=== PATIENT | female | born 1945 | race Caucasian/White ===

== ENCOUNTER 2019-05-21 09:43 | Inpatient (IN) | payer MEDICARE, BC ==
[~2019-05-21] VITALS: Ht 154.9 cm; Wt 84.4 kg
[~2019-05-21 09:43] MED LIST: ASPI-1169 PO; BUME1TAB34 PO; CARV25TA2 PO; LISI-603 PO; SPIR25TA PO
--- NOTE | 2019-05-21 10:00 | NUR ---
SOB, BLE EDEMA WORST X 1 WEEK, DENIES CHEST PAIN. AA/OX4, BREATHING EVEN AND UNLABORED, NO SOB NOTED, CHANGED INTO GOWN, NO DISTRESS NOTED, ATTACHED TO THE HAND TACKER. WILL MONITOR.
[2019-05-21 10:19] LABS: BASOPHILS % (AUTO) 0.4 % (0.0-2.0); EOSINOPHILS % (AUTO) 0.6 % (0.0-6.0); HEMATOCRIT 43 % (33-45); HEMOGLOBIN 14.4 g/dL (11.5-14.8); LYMPHOCYTES # (AUTO) 0.9 /CMM (0.8-4.8); LYMPHOCYTES % (AUTO) 17.4 % (20.0-44.0); MEAN CORPUSCULAR HGB CONC 33 g/dl (31.0-36.0); MEAN CORPUSCULAR VOLUME 100 fL (82-100); MONOCYTES # (AUTO) 0.5 /CMM (0.1-1.30); MONOCYTES % (AUTO) 8.8 % (2.0-12.0); NEUTROPHILS # (AUTO) 3.9 /CMM (1.8-8.9); NEUTROPHILS % (AUTO) 72.8 % (43.0-81.0); PLATELET COUNT (AUTO) 120 /CMM (150-450); RED BLOOD CELL COUNT(AUTO) 4.33 MIL/uL (4.0-5.2); WHITE BLOOD COUNT (AUTO) 5.3 K/uL (4.3-11.0)
[2019-05-21 10:26] LABS: CALCIUM, SERUM 8.7 mg/dL (8.5-10.1); CARBON DIOXIDE 28 mmol/L (21-32); CHLORIDE 108 mmol/L (98-107); CREATININE 1.5 mg/dL (0.6-1.3); GLUCOSE 115 mg/dL (74-106); POTASSIUM 4.3 mmol/L (3.5-5.1); SODIUM SERUM 144 mmol/L (136-145); UREA NITROGEN, BLOOD 38 mg/dL (7-18)
[2019-05-21 10:41] LABS: ALANINE AMINOTRANSFERASE 33 U/L (12-78); ALBUMIN 3.4 g/dL (3.4-5.0); ALKALINE PHOSPHATASE 81 U/L (46-116); ASPARTATE AMINOTRANSFERASE 25 U/L (15-37); B-TYPE NATRIURETIC PEPTIDE 9108 PG/ML (0-125); BILIRUBIN,DIRECT 0.3 mg/dL (0.0-0.2); BILIRUBIN,TOTAL 0.8 mg/dL (0.2-1.0); TOTAL PROTEIN, SERUM 6.3 g/dL (6.4-8.2)
--- NOTE | 2019-05-21 11:51 | NUR ---
CALLED NURSING SUP FOR BED
--- NOTE | 2019-05-21 11:58 | NUR ---
CALLED [facility], PAGED LOGGING SUPERVISOR OSIEL
[2019-05-21 12:00] VITALS: BP 116/79
--- NOTE | 2019-05-21 12:24 | NUR ---
325-1 TELE CHF, OSIEL DNP
--- NOTE | 2019-05-21 12:24 | NUR ---
Sailaja moss in [facility] - 05/21/19 at 1224 by LOS 235-1 TELE, CHF, OSIEL DNP
[2019-05-21] MEDS ORDERED: FUROSEMIDE 20 MG/2 ML VIAL IV ONE (12:30)
[2019-05-21] MEDS ORDERED: FUROSEMIDE 20 MG/2 ML VIAL ONE (12:34)
[2019-05-21 13:00] VITALS: BP 116/79
--- NOTE | 2019-05-21 13:00 | NUR ---
HOME HEALTH NURSE LICENSED PRACTICAL NOTES PT ARRIVED ONTO THE UNIT VIA GURNEY. PT AMBULATED FROM THE GURNEY TO THE HOSPITAL BED. PER PATIENT INCREASE OF BLE EDEMA AND WORSENING SOB X1 WEEK. PT HAS LEFT HAND #20 INTACT AND PATENT. NO COMPLAINTS OF PAIN, SOB OR DISTRESS AT THIS TIME. PT HAS BLE DRYNESS. PT TELE MONITORED NSR WITH OCC PVS. ALL PATIENT BELONGINGS ACCOUNTED FOR AND DOCUMENTED. PT ORIENTED TO THE USE OF THE CALL LIGHT. SAFETY PRECAUTIONS IN PLACE, BED IN LOWEST LOCKED POSITION, X2 SIDE RAILS UP AND CALL LIGHT WITHIN REACH. WILL CONTINUE TO MONITOR.
--- NOTE | 2019-05-21 13:00 | NUR ---
Transferred patient to room 325-1 via acls protocol. Patient in stable condition. No distress noted. Endorsed to Sheree WATSON.
[2019-05-21] MEDS ORDERED: HYDROCODONE/APAP 5/325MG 1 EACH TABLET PO PRN (14:00)
[2019-05-21] MEDS ORDERED: ONDANSETRON HCL/PF 4 MG/2 ML VIAL IVP PRN (14:00)
[2019-05-21] MEDS ORDERED: ACETAMINOPHEN 325 MG TABLET PO PRN (14:00)
[2019-05-21] MEDS ORDERED: MAG HYDROX/AL HYDROX/SIMETH 30 ML UDC PO PRN (14:00)
[2019-05-21] MEDS ORDERED: MAGNESIUM HYDROXIDE 30 ML UDC PO PRN (14:00)
[2019-05-21] MEDS ORDERED: ZOLPIDEM TARTRATE 5 MG TABLET PO PRN (14:00)
[2019-05-21] MEDS ORDERED: Z GUARD REMEDY 2 OZ OINT TP PRN (14:00)
[2019-05-21 16:00] VITALS: BP 83/51
[2019-05-21] MEDS: ASPIRIN 81 MG TAB.CHEW PO SCH (17:19)
--- NOTE | 2019-05-21 18:40 | NUR ---
RN NOTES STAT EKG ORDERED BY DR CARTAGENA. PT HAD X2 EPISODES OF V RUNS PER PARTS CONSULTANT. EKG SHOWED NSR WITH BBB. DR CARTAGENA INFORMED OF RESULTS. Addendum: 05/21/19 at 1844 by NERY SEGUNDO RN PT REMAINS ASYMPTOMATIC.
--- NOTE | 2019-05-21 18:42 | NUR ---
RN CLOSING NOTES PT AWAKE AND RESTING IN BED. NO COMPLAINTS OF PAIN, SOB OR DISTRESS DURING SHIFT. PT HAS LEFT HAND #20 IV INTACT AND PATENT. PT TELE MONITORED NSR WITH BBB AND OCCASIONAL PVCS. SAFETY PRECAUTIONS IN PLACE, BED IN LOWEST LOCKED POSITION, X2 SIDE RAILS UP AND CALL LIGHT WITHIN REACH. WILL ENDORSE TO PORTABLE FEED MILL OPERATOR NURSE FOR CONTINUITY OF CARE.
--- NOTE | 2019-05-21 19:40 | NUR ---
RN NOTES RECEIVED PT. AWAKE ON BED, A/OX4, AMBULATORY, SR WITH BBB AND PAC HR-80, DENIES PAIN, NO SOB, BILATERAL LOWER EXTREMITIES EDEMA NOTED +2, DR. OTT ASKED ME IF PT BP IS LOW, BP ON THE 80'S -TRIED IT MANUALLY - PT IS ASYMPTOMATIC, PER PATIENT HER BLOOD PRESSURE IS ALWAYS ON THE LOW SIDE, DENIES PAIN, NO SOB, CALL LIGHT WITHIN REACH, [id number], CONTINUE TO MONITOR
--- NOTE | 2019-05-21 19:50 | NUR ---
RN NOTES INFORMED JACQUI MAN DNP REGARDING PT. BLOOD PRESSURE. JACQUI MONTGOMERY IS AWARE OF PT. 2D ECHO RESULT. AND MADE NO ORDER
[2019-05-21 20:00] VITALS: BP_SYST 80; BP_SYST 81; BP_DIAS 57; BP_DIAS 60
[2019-05-21] MEDS: ENOXAPARIN SODIUM 30 MG/0.3 ML DISP.SYRIN SQ SCH (21:24)
[2019-05-22] VITALS: BP 113/62
[2019-05-22 04:00] VITALS: BP_SYST 113; BP_SYST 78; BP_SYST 81; BP_SYST 85; BP_DIAS 53; BP_DIAS 57; BP_DIAS 62; BP_DIAS 64
[2019-05-22 06:33] LABS: BASOPHILS % (AUTO) 0.2 % (0.0-2.0); EOSINOPHILS % (AUTO) 0.9 % (0.0-6.0); HEMATOCRIT 44 % (33-45); HEMOGLOBIN 14.1 g/dL (11.5-14.8); LYMPHOCYTES # (AUTO) 0.8 /CMM (0.8-4.8); LYMPHOCYTES % (AUTO) 18.8 % (20.0-44.0); MEAN CORPUSCULAR HGB CONC 32 g/dl (31.0-36.0); MEAN CORPUSCULAR VOLUME 101 fL (82-100); MONOCYTES # (AUTO) 0.4 /CMM (0.1-1.30); MONOCYTES % (AUTO) 10.3 % (2.0-12.0); NEUTROPHILS # (AUTO) 2.8 /CMM (1.8-8.9); NEUTROPHILS % (AUTO) 69.8 % (43.0-81.0); PLATELET COUNT (AUTO) 113 /CMM (150-450); RED BLOOD CELL COUNT(AUTO) 4.33 MIL/uL (4.0-5.2)
--- NOTE | 2019-05-22 06:47 | NUR ---
RN NOTES AWAKE, DENIES PAIN, NO SOB, MORNING CARE RENDERED, CALL LIGHT WITHIN REACH, [id number], CONTINUE TO MONITOR
[2019-05-22 07:09] LABS: ALANINE AMINOTRANSFERASE 28 U/L (12-78); ALBUMIN 3.2 g/dL (3.4-5.0); ALKALINE PHOSPHATASE 67 U/L (46-116); ASPARTATE AMINOTRANSFERASE 22 U/L (15-37); BILIRUBIN,TOTAL 0.7 mg/dL (0.2-1.0); CALCIUM, SERUM 8.8 mg/dL (8.5-10.1); CARBON DIOXIDE 32 mmol/L (21-32); CHLORIDE 108 mmol/L (98-107); CREATININE 1.6 mg/dL (0.6-1.3); GLUCOSE 99 mg/dL (74-106); MAGNESIUM 2.1 mg/dL (1.8-2.4); PHOSPHORUS 3.7 mg/dL (2.5-4.9); POTASSIUM 4.6 mmol/L (3.5-5.1); SODIUM SERUM 145 mmol/L (136-145); TOTAL PROTEIN, SERUM 6.1 g/dL (6.4-8.2); UREA NITROGEN, BLOOD 39 mg/dL (7-18)
[2019-05-22 07:10] LABS: CHOLESTEROL 143 mg/dL (<200); HDL CHOLESTEROL 44 mg/dL (40-60); LDL 93 mg/dL (0-99); THYROID STIMULATING HORMONE 1.189 uIU/mL (0.358-3.74); TRIGLYCERIDES 64 mg/dL (30-150)
--- NOTE | 2019-05-22 07:27 | NUR ---
CARDING UTILITY TENDER OPENING NOTES RECEIVED PATIENT AWAKE IN BED RESTING COMFORTABLY. A/O X 4. NO SOB NOTED. ON IV ACCESS ON LEFT HAND #20, CURRENTLY ON S/L. PATENT AND INTACT. ON TELE MONITORING WITH CURRENT READINGS OF SR WITH BBB AND PAC, HR OF 70'S. SAFETY MEASURES IN PLACE, BED IN LOW LOCKED POSITION, SIDE RAILS UP X2. CALL LIGHT WITHIN EASY REACH. WILL CONTINUE TO MONITOR.
[2019-05-22 08:03] VITALS: BP 76/40
[2019-05-22] MEDS: ASPIRIN 81 MG TAB.CHEW PO SCH ×2 (08:12→16:27)
[2019-05-22] MEDS ORDERED: FUROSEMIDE 40 MG/4 ML VIAL IV SCH (09:00)
[2019-05-22] MEDS ORDERED: SPIRONOLACTONE 25 MG TABLET PO SCH (09:00)
[2019-05-22 12:00] VITALS: BP 84/59
[2019-05-22 16:00] VITALS: BP 88/62
[2019-05-22] MEDS ORDERED: ASPI-1152 PO (17:46)
--- NOTE | 2019-05-22 18:59 | NUR ---
MS RN CLOSING NOTES PATIENT IN BED RESTING COMFORTABLY. A/O X 4. ABLE TO MAKE NEEDS KNOWN. IV ACCESS ON LEFT HAND #20, SL. PATENT AND INTACT. ALL NURSING NEEDS AND CARE ATTENDED WELL. SAFETY MEASURES KEPT IN PLACE. BED IN LOW LOCKED POSITION WITH SIDE RAILS UP X2. BEDSIDE TABLE AND CALL LIGHT WITHIN REACH. WILL ENDORSE TO BURGLAR ALARM INSPECTOR NURSE FOR RUBÉN.
--- NOTE | 2019-05-22 19:30 | NUR ---
RN NOTES RECEIVED PT. AWAKE , WALKING INSIDE HER ROOM, DENIES PAIN, "PT. STATED THAT SHE FEELS BETTER NOW", NO SOB CALL LIGHT WITHIN REACH, [id number], CONTINUE TO MONITOR
[2019-05-22 20:00] VITALS: BP_SYST 81; BP_SYST 85; BP_DIAS 52
[2019-05-22] MEDS: ENOXAPARIN SODIUM 30 MG/0.3 ML DISP.SYRIN SQ SCH (21:09)
[2019-05-23 06:21] LABS: BASOPHILS % (AUTO) 0.3 % (0.0-2.0); EOSINOPHILS % (AUTO) 0.9 % (0.0-6.0); HEMATOCRIT 44 % (33-45); HEMOGLOBIN 14.6 g/dL (11.5-14.8); LYMPHOCYTES # (AUTO) 0.8 /CMM (0.8-4.8); LYMPHOCYTES % (AUTO) 15.2 % (20.0-44.0); MEAN CORPUSCULAR HGB CONC 33 g/dl (31.0-36.0); MEAN CORPUSCULAR VOLUME 100 fL (82-100); MONOCYTES # (AUTO) 0.4 /CMM (0.1-1.30); MONOCYTES % (AUTO) 8.2 % (2.0-12.0); NEUTROPHILS # (AUTO) 3.9 /CMM (1.8-8.9); NEUTROPHILS % (AUTO) 75.4 % (43.0-81.0); PLATELET COUNT (AUTO) 111 /CMM (150-450); RED BLOOD CELL COUNT(AUTO) 4.41 MIL/uL (4.0-5.2); WHITE BLOOD COUNT (AUTO) 5.2 K/uL (4.3-11.0)
[2019-05-23 06:24] LABS: ALANINE AMINOTRANSFERASE 31 U/L (12-78); ALBUMIN 3.3 g/dL (3.4-5.0); ALKALINE PHOSPHATASE 72 U/L (46-116); ASPARTATE AMINOTRANSFERASE 18 U/L (15-37); BILIRUBIN,TOTAL 0.6 mg/dL (0.2-1.0); CALCIUM, SERUM 8.6 mg/dL (8.5-10.1); CREATININE 1.6 mg/dL (0.6-1.3); GLUCOSE 103 mg/dL (74-106); MAGNESIUM 2.1 mg/dL (1.8-2.4); PHOSPHORUS 3.4 mg/dL (2.5-4.9); TOTAL PROTEIN, SERUM 6.3 g/dL (6.4-8.2); UREA NITROGEN, BLOOD 40 mg/dL (7-18)
--- NOTE | 2019-05-23 06:30 | NUR ---
RN NOTES AWAKE, DENIES PAIN, NO SOB, MORNING CARE RENDERED, CALL LIGHT WITHIN REACH, [id number], PT. NEEDS ATTENDED
[2019-05-23 06:38] LABS: CARBON DIOXIDE 29 mmol/L (21-32); CHLORIDE 107 mmol/L (98-107); POTASSIUM 4.4 mmol/L (3.5-5.1); SODIUM SERUM 144 mmol/L (136-145)
--- NOTE | 2019-05-23 07:10 | NUR ---
MS RN NOTES PATIENT IN BED ALERT ORIENTED X 3. NO ACUTE DISTRESS NOTED. BREATHING UNLABORED. NO SOB NOTED. IV ACCESS PATENT AND INTACT, NO REDNESS OR SWELLING NOTED. SAFETY MEASURES IN PLACE. CALL LIGHT WITHIN REACH. WILL CONTINUE TO MONITOR ACCORDINGLY.
[2019-05-23 08:00] VITALS: BP 87/62
[2019-05-23] MEDS: CARVEDILOL 3.125 MG TABLET PO SCH ×3 (08:35→21:37)
[2019-05-23] MEDS: ASPIRIN 81 MG TAB.CHEW PO SCH ×2 (08:35→17:24)
--- NOTE | 2019-05-23 08:36 | NUR ---
MS RN NOTES PATIENT NOTED WITH BLOOD PRESSURE 87/62, PULSE 90. HELD BLOOD PRESSURE MEDICATION. DR JACQUI CARTAGENA PRESENT AT THE UNIT MADE AWARE. NO NEW ORDERS MADE AT THIS TIME.
[2019-05-23 16:00] VITALS: BP 77/68
[2019-05-23] MEDS ORDERED: CARV3.122 PO (17:39)
--- NOTE | 2019-05-23 18:53 | NUR ---
MS RN NOTES PATIENT IN BED ALERT ORIENTED X 3 . NO ACUTE DISTRESS NOTED. BREATHING UNLABORED. NO SOB NOTED. IV ACCESS PATENT AND INTACT, NO REDNESS OR SWELLING NOTED. SAFETY MEASURES IN PLACE. KEPT CLEAN DRY AND COMFORTABLE. NEEDS ATTENDED AND ANTICIPATED . FOLLOWED UP WITH [employer] SAID SOMEONE WILL COME TONIGHT OR TOMORROW TO FIT AND PUT ON LIFE VEST FOR PATIENT. CALL LIGHT WITHIN REACH. WILL ENDORSE TO NIGHT NURSE FOR CONTINUITY OF CARE.
--- NOTE | 2019-05-23 19:15 | NUR ---
MS RN PM OPENING NOTES BEDSIDE REPORT RECIEVED FROM MIGUEL A WATSON. POC REVIEWED QUESTIONS CONCERNS ADDRESSED. PATIENT SITTING UP IN BED ALERT ORIENTED X 3. NO ACUTE DISTRESS NOTED. BREATHING UNLABORED. NO SOB NOTED. IV ACCESS FLUSHED PATENT AND INTACT, NO REDNESS OR SWELLING NOTED. SAFETY MEASURES IN PLACE. [employer] SAID SOMEONE WILL COME TONIGHT OR TOMORROW TO FIT AND PUT ON LIFE VEST FOR PATIENT PER REPORT. DISCHARGE ORDERS ARE WRITTEN, BUT NEEDS TO BE FITTED WITH [employer] PRIOR TO DISCHARGE. CALL LIGHT WITHIN REACH. WILL CONT TO MONITOR.
[2019-05-23 20:00] VITALS: BP 79/59
--- NOTE | 2019-05-23 20:31 | NUR ---
Dwight from [employer] company at the bedside to deliver life vest. at bedside performing teaching. patient has been discharged but states daughter will be unable to pick the patient up till tomorrow.
[2019-05-23] MEDS: ENOXAPARIN SODIUM 30 MG/0.3 ML DISP.SYRIN SQ SCH (21:21)
--- NOTE | 2019-05-24 02:15 | NUR ---
life vest to refit patient 05/24/19 in am patient reports that she felt life vest was too tight and it was keeping her from breathing all the way. states that she called the company and that they were going to send a loss prevention representative out to the hospital tomorrow morning to have patient refitted with a larger size.
--- NOTE | 2019-05-24 06:24 | NUR ---
MS RN PM CLOSING NOTES PATIENT SITTING UP IN BED ALERT ORIENTED X 3. REPORTS SHE GOT A LITTLE SLEEP LAST NIGHT. WEARING LIFE VEST, NO ALARMS ACTIVATED AFTER APPLICATION. PATIENT STILL REPORTING THAT IT FEELS TOO TIGHT. KETTLE OPERATOR CALLED AND CONFIRMED THEY WILL BE COMING IN THE AM TO REFIT PATIENT. PATIENT IN NO ACUTE DISTRESS . BREATHING UNLABORED. IV ACCESS FLUSHED PATENT AND INTACT, NO REDNESS OR SWELLING NOTED. SAFETY MEASURES IN PLACE. DISCHARGE ORDERS ARE WRITTEN, BUT PER PATIENT DAUGHTER WONT BE AVAILABLE FOR TRANSPORT HOME TILL LATER THIS AFTERNOON. CALL LIGHT WITHIN REACH VERBALIZED UNDERSTANDING TO CALL FOR ASSISTANCE IF NEEDED.
--- NOTE | 2019-05-24 07:43 | NUR ---
MS RN OPENING NOTES RECEIVED PATIENT RESTING IN BED COMFORTABLY. A/O X 4. ON RA, TOLERATING WELL. WEARING LIFE VEST, NO ALARMS NOTED AT THIS TIME. PATIENT IN NO ACUTE DISTRESS . BREATHING UNLABORED. NOTED WITH IV ACCESS ON LEFT HAND #20, SL. PATENT AND INTACT. SAFETY MEASURES IN PLACE. BED IN LOW LOCKED POSITION WITH SIDE RAILS UP X2. CALL LIGHT WITHIN EASY REACH. WILL CONTINUE TO MONITOR.
[2019-05-24 08:00] VITALS: BP 80/56
[2019-05-24] MEDS: ASPIRIN 81 MG TAB.CHEW PO SCH ×2 (08:37→17:04)
[2019-05-24] MEDS: CARVEDILOL 3.125 MG TABLET PO SCH ×2 (08:39→20:16)
[2019-05-24] MEDS ORDERED: FUROSEMIDE 20 MG/2 ML VIAL IV ONE (09:30)
[2019-05-24] MEDS ORDERED: SPIRONOLACTONE 25 MG TABLET PO SCH (09:30)
--- NOTE | 2019-05-24 09:30 | NUR ---
MS RN NOTES SEEN AND EXAMINE BY DR. OTT. WITH NEW ORDERS OF LASIX AND ALDACTONE. PATIENT BP IS 80/56, HR OF 96. DR. OTT MADE AWARE AND SAID IT'S OKAY TO GIVE MEDICATION. WILL CONTINUE TO MONITOR.
[2019-05-24 15:58] VITALS: BP 106/50
--- NOTE | 2019-05-24 19:00 | NUR ---
MS RN CLOSING NOTES PATIENT RESTING IN BED COMFORTABLY. A/O X 4. ON RA, TOLERATING WELL. WEARING LIFE VEST, NO ALARMS NOTED AT THIS TIME. PATIENT IN NO ACUTE DISTRESS. BREATHING UNLABORED. NOTED WITH IV ACCESS ON LEFT HAND #20, SL. PATENT AND INTACT. SAFETY MEASURES KEPT IN PLACE. BED IN LOW LOCKED POSITION WITH SIDE RAILS UP X2. CALL LIGHT WITHIN EASY REACH. ENDORSED TO WAITSTAFF CAPTAIN NURSE FOR RUBÉN.
--- NOTE | 2019-05-24 19:24 | NUR ---
MS/RN OPENING NOTES RECEIVED PATIENT AWAKE, ALERT X3, ABLE TOVERBALIZE NEEDS, ABLE TO WALK AND AMBULATE WITH SUPERVISION, VERBALIZED NEEDS AND DISCUSSED CARE, PATIENT REPORTED CONCERN TO GO HOME AND MAY NEED EVALUATION BY RETAIL ATTENDANT AND SUPERVISOR CARPENTERS FOR TRANSITIONAL CARE, SKIN WARM TO TOUCH, WEARING LIFE VEST FOR HEART MONITOR. NOTICEABLE SWOLLEN FEET, INSTRUCTED TO KEEP FEET ELEVATED. WILL MONITOR AND PROVIDE CARE. BED LOCKED, CALL LIGHTS WITHIN REACH, WILL MONITOR.
[2019-05-24 20:00] VITALS: BP_SYST 80; BP_SYST 85; BP_DIAS 56; BP_DIAS 63
--- NOTE | 2019-05-24 20:14 | NUR ---
MS/RN NOTES PATIENT ALERT, ORIENTED, RESTING IN BED, BLOOD PRESSURE LOW TAKEN AT 1999, PATIENT STATED I USUALLY HAVE LOW B/.P. WILL MONITOR AND OFFERED FLUIDS AND SNACKS RIO RECHECK AGAIN BLOOD PRESSURE AFTER INTERVENTION.
[2019-05-24] MEDS: ENOXAPARIN SODIUM 30 MG/0.3 ML DISP.SYRIN SQ SCH (20:37)
--- NOTE | 2019-05-25 06:28 | NUR ---
MS/RN CLOSING NOTES PATIENT ABLE TO SLEEP FEW HOURS, ALERT, ORIENTED X3, RESPIRATIONS EVEN AND UNLABORED, WITH OXYGEN AT 3 LITER FOR COMFORT, PATENT ABLE TO MAKE NEEDS KNOWN. AMBULATORY WITH SUPERVISION. WITH [employer] MONITORING. BED LOCKED, CAKK KIGHTS WITHIN REACH. WILL ENDORSE TO AM RN FOR RUBÉN.
--- NOTE | 2019-05-25 07:24 | NUR ---
M/S RN OPENING NOTES RECEIVED PATIENT ON BED, HOB ELEVATED. RESPIRATION EVEN AND NON LABORED WITH NO ACUTE RESPIRATORY DISTRESS, PT STATED WITH EPISODES OF SOB, ON 1LPM VIA NASAL CANNULA AND TOLERATED WELL. ABDOMEN SOFT AND NON DISTENDED WITH ACTIVE BOWEL SOUNDS. DENIES PAIN AND DISCOMFORT. SKIN WARM TO TOUCH AND DRY. IV SITE AT LEFT HAND WITH NO S/SX OF INFILTRATION. BLE ELEVATED DUE TO EDEMA, PT COMFORTABLE. ALL CONCERNS ADDRESSED. PLACED CALL LIGHT WITHIN REACH.
[2019-05-25 08:00] VITALS: BP 83/55
[2019-05-25] MEDS ORDERED: POTASSIUM CHLORIDE 10 MEQ TABLET.SA PO SCH (09:00)
[2019-05-25] MEDS ORDERED: FUROSEMIDE 40 MG TABLET PO SCH (09:00)
[2019-05-25] MEDS: ASPIRIN 81 MG TAB.CHEW PO SCH ×2 (09:13→17:03)
[2019-05-25] MEDS: CARVEDILOL 3.125 MG TABLET PO SCH (09:13)
--- NOTE | 2019-05-25 09:13 | NUR ---
M/S RN NOTES PT BP 83/55, IN 81. RE-CHECKED MANUALLY 86/63 LEFT UPPER ARM, SITTING POSITION. PER DR. OTT GIVE BP MEDS ORDERED.
[2019-05-25 16:00] VITALS: BP 83/68
--- NOTE | 2019-05-25 16:20 | NUR ---
M/S RN NOTES PT AGREED TO BE DISCHARGED AT [facility]
--- NOTE | 2019-05-25 16:45 | NUR ---
M/S RN NOTES GIVEN REPORT TO LIBBY WATSON
--- NOTE | 2019-05-25 18:20 | NUR ---
M/S RECORDS MANAGEMENT TECHNICIAN NOTES PATIENT DISCHARGED TO [facility] DISCUSSED WITH PATIENT AND DAUGHTER SOFÍA. TRANSFERRED VIA GURNEY WITH 2 EMT'S. PATIENT A/O X 4 AND ABLE TO MAKE NEEDS KNOWN. RESPIRATION EVEN AND NON LABORED WITH NO ACUTE RESPIRATORY DISTRESS. ABDOMEN SOFT AND NON DISTENDED WITH ACTIVE BOWEL SOUNDS, LBM TODAY. CONTINENT IN URINE AND FECAL ELIMINATION. SKIN WARM TO TOUCH, DRY AND INTACT. DRYNESS OF SKIN PRESENT, NO NEW OPEN SKIN BREAKDOWN. BLE +2 PITTING EDEMA. DENIES PAIN AND DISCOMFORT. EXIT CARE GIVEN TO PATIENT AND LIBBY WATSON FROM SNF. ALL CONCERNS ATTENDED WITH CASE MANAGEMENT TEAM FOR DISCHARGE PROCESS TO SNF ATTENDED. PATIENT VERBALIZED UNDERSTANDING WITH DC. PATIENT LEFT IN STABLE CONDITION AND SAFE ENVIRONMENT.
== END 2019-05-25 18:20 | DRG 291 ==
LOC: ER 09:43 → TELE 12:40 → MED 05-22 18:09
PROVIDERS: ADMIT Hospitalist; ATTEND Hospitalist
DX: I13.0 Hypertensive heart and chronic kidney disease with heart failure and stage 1 through stage 4 chronic kidney disease, or unspecified chronic kidney disease (principal); I50.23 Acute on chronic systolic (congestive) heart failure; N17.9 Acute kidney failure, unspecified; E44.1 Mild protein-calorie malnutrition; E11.22 Type 2 diabetes mellitus with diabetic chronic kidney disease; N18.9 Chronic kidney disease, unspecified; D69.6 Thrombocytopenia, unspecified; Z95.1 Presence of aortocoronary bypass graft; F17.210 Nicotine dependence, cigarettes, uncomplicated; E66.9 Obesity, unspecified; Z68.34 Body mass index [BMI] 34.0-34.9, adult; I95.9 Hypotension, unspecified; I42.9 Cardiomyopathy, unspecified; E86.1 Hypovolemia; Z86.73 Personal history of transient ischemic attack (TIA), and cerebral infarction without residual deficits; I25.10 Atherosclerotic heart disease of native coronary artery without angina pectoris
CPT/HCPCS: 36415; 71045-TC; 80048-TC; 80053-TC; 80061-TC; 80076-TC; 83735-TC; 83880; 84100-TC; 84443-TC; 84484-TC; 85025-TC; 85730-TC; 87081-TC; 93307-TC; 93970-TC; 97116-TC; 97530-TC; G0378; J1650; J1940